=== PATIENT | female | born 1985 | race Caucasian/White ===

== ENCOUNTER 2016-08-14 20:13 | Inpatient (IN) | payer MEDICAID ==
[~2016-08-14] VITALS: Ht 165.1 cm; Wt 84.9 kg
[2016-08-14] MEDS ORDERED: PREN1TAB79 PO (20:49)
[2016-08-14 20:50] VITALS: BP 133/66; PULSE 58; RESP 18
[2016-08-14 20:58] VITALS: Ht 165.1 cm; Wt 84.9 kg
[2016-08-14] MEDS ORDERED: OXYTOCIN 30 UNITS/LR 500 ML IV SCH ×2 (21:00)
[2016-08-14] MEDS ORDERED: LACTATED RINGER'S 1,000 ML IV ONE (21:00)
[2016-08-14] MEDS ORDERED: MISOPROSTOL 200 MCG TAB PR PRN (21:00)
[2016-08-14] MEDS ORDERED: AMPICILLIN 2 GM/NS (PMX) 100 ML IV ONE (21:00)
[2016-08-14] MEDS ORDERED: LIDOCAINE 1% (MPF) 30 ML INJ INJ PRN (21:00)
[2016-08-14] MEDS ORDERED: LACTATED RINGER'S 1,000 ML IV PRN (21:00)
[2016-08-14] MEDS ORDERED: IBUPROFEN 600 MG TAB PO PRN (21:00)
[2016-08-14] MEDS ORDERED: OXYTOCIN 30 UNITS/LR 500 ML IV PRN (21:00)
[2016-08-14] MEDS ORDERED: METHYLERGONOVINE 0.2 MG INJ IM PRN (21:00)
[2016-08-14] MEDS ORDERED: CARBOPROST 250 MCG INJ IM PRN (21:00)
[2016-08-14] MEDS ORDERED: AMPICILLIN 2 GM/NS (PMX) 100 ML ONE (21:12)
[2016-08-14 22:00] LABS: ADD SCAN DIFF NO
[2016-08-14 22:08] LABS: BASOPHILS % 0.2 % (0.0-2.0); EOSINOPHILS # 0.1 10^3/ul (0.0-0.5); EOSINOPHILS % 0.9 % (0.0-7.0); HEMATOCRIT 31.1 % (37.0-47.0); LYMPHOCYTES # 1.9 10^3/ul (0.8-2.9); LYMPHOCYTES % 29.8 % (15.0-51.0); MEAN CORPUSCULAR HEMOGLOBIN 26.2 pg (29.0-33.0); MEAN CORPUSCULAR HGB CONC 32.2 g/dl (32.0-37.0); MEAN CORPUSCULAR VOLUME 81.4 fl (82.0-101.0); MEAN PLATELET VOLUME 12.8 fl (7.4-10.4); MONOCYTE # 0.5 10^3/ul (0.3-0.9); MONOCYTES % 8.1 % (0.0-11.0); NEUTROPHIL # 3.9 10^3/ul (1.6-7.5); NEUTROPHILS % 60.2 % (39.0-77.0); NUCLEATED RED BLOOD CELLS% 0.3 /100WBC (0.0-0.0); PLATELET COUNT 126 10^3/UL (140-415); RED BLOOD COUNT 3.82 10^6/ul (4.20-5.40); RED CELL DISTRIBUTION WIDTH 14.6 % (11.5-14.5); WHITE BLOOD COUNT 6.4 10^3/ul (4.8-10.8)
[2016-08-14 22:23] LABS: INR 0.91; PROTIME 12.2 Sec (12.2-14.2)
[2016-08-14 22:24] LABS: PARTIAL THROMBOPLASTIN TIME 28.2 Sec (25.0-35.0)
[2016-08-14] MEDS ORDERED: FENTAnyl 2MCG/ML-ROPIV 0.2% 100 ML ONE (23:33)
--- NOTE | 2016-08-14 23:49 | TRIAGE ---
OB Triage Datetime Report Generated by CPN: 08/14/2016 23:49 Datetime: 08/14/2016 23:12 Pain Assessment Pain Scale: 5 Pain Presence: Intermittent Pain Type: Contraction Pain Location: Abdomen Pain Goal: 5 Pain Relief Measures: Comfort Measures Datetime: 08/14/2016 23:00 Monitor Mode: External Monitor Mode: External US Datetime: 08/14/2016 22:40 Pain Assessment Pain Scale: 4 Pain Presence: Intermittent Pain Type: Contraction Pain Location: Abdomen Pain Goal: 5 Pain Relief Measures: Comfort Measures Datetime: 08/14/2016 22:00 Monitor Mode: External Monitor Mode: External US Datetime: 08/14/2016 21:05 Stage of : Labor Assessment Type: Admission Assessment Time of Arrival: 08/14/2016 21:05 EGA: 38.6 Arrived By: Ambulatory Arrived From: Other Unit in Hospital Maternal Assessment Level of Consciousness: Fully Conscious DTR's/Clonus: DTRs 2+; No Clonus Headache: Denies Blurred Vision: No Respiratory Effort: Unlabored; Regular Rhythm; Equal Expansion Breath Sounds, Left: Clear and Equal Breath Sounds, Right: Clear and Equal Nausea/Vomiting: Denies RUQ Epigastric Pain: Denies Facial Edema: None Fall Risk Assessment History of Falling: (0) No Secondary Diagnosis: (0) No Ambulatory Aid: (0) Bedrest/Nurse Assist IV Therapy: (0) No Gait: (0) Normal/Bedrest/Immobile Mental Status: (0) Oriented to Own Ability Fall Score: 0 Fall Risk Score Definition: No Risk: No action required Datetime: 08/14/2016 21:00 Stage of : OB Triage Labor Evaluation Frequency: 4-6.5 Monitor Mode: External Duration (sec)2399: 70-110 Quality: Mild Pattern: Normal: <= 5 Contractions in 10 Minutes Resting Tone [place]: Relaxed Heart Rate FHR Baseline Rate: 180 Monitor Mode: External US FHR Baseline Changes: Tachycardia Variability: Moderate 6-25 bpm Accelerations: 10X10 Decelerations: Variable Category: Category II Datetime: 08/14/2016 20:53 Vaginal Exam Dilatation (cms): 3.0 Effacement (%): 50 Station: -3 Exam By: DIONI Tobias Membrane Status: Intact Vaginal Bleeding: Small Cervix, Consistency: Moderate Cervix, Position: Posterior Presentation 'A': Cephalic Datetime: 08/14/2016 20:44 Stage of : OB Triage Assessment Type: Triage Time of Arrival: 08/14/2016 20:07 EGA: 38.6 Arrived By: Ambulatory Arrived From: Home Chief Complaint: Spotting since 1699 _ 's q1hr Movement: Present Contractions: Irregular Time Contractions Began: 08/14/2016 10:00 Contractions: q1hr Rupture of Membranes: Denies Vaginal Bleeding: Small Vaginal Discharge: Present Abdominal Trauma: Not Applicable Patient Complaints: Contractions; Cramping; Back Pain Additional Patient Complaints: Pt reports was in clinic this am. VE done. 1.5cm per pt. Time Provider Notified: 08/14/2016 21:05 Provider Notified: Maternal Assessment Level of Consciousness: Fully Conscious DTR's/Clonus: DTRs 2+; No Clonus Headache: Denies Blurred Vision: No Respiratory Effort: Unlabored; Regular Rhythm; Equal Expansion Breath Sounds, Left: Clear and Equal Breath Sounds, Right: Clear and Equal Nausea/Vomiting: Denies RUQ Epigastric Pain: Denies Lower Extremities Edema: Bilateral Lower Extremities Degree: 1+ (Annotations: More in left ankle) Upper Extremities Edema: None Degree: None Facial Edema: None Temperature Route: Oral Fall Risk Assessment History of Falling: (0) No Secondary Diagnosis: (0) No Ambulatory Aid: (0) Bedrest/Nurse Assist IV Therapy: (0) No Gait: (0) Normal/Bedrest/Immobile Mental Status: (0) Oriented to Own Ability Fall Score: 0 Fall Risk Score Definition: No Risk: No action required Pain Assessment Pain Scale: 3 Pain Presence: Intermittent Pain Type: Cramping Pain Location: Abdomen; Back Pain Relief Measures: Comfort Measures Datetime: 08/14/2016 20:42 Monitor Mode: External Contraction Comments: [place] applied Heart Rate FHR Baseline Rate: 180 Monitor Mode: External US Comments: EFM applied
[2016-08-15] MEDS: LACTATED RINGER'S 1,000 ML IV SCH ×4 (02:10→19:40)
[2016-08-15] MEDS: AMPICILLIN 1 GM/NS (PMX) 50 ML IV SCH ×3 (03:19→11:03)
[2016-08-15] MEDS: BUTORPHANOL 2 MG INJ IV PRN ×2 (03:38→16:39)
--- NOTE | 2016-08-15 10:15 | RADRPT ---
PROCEDURE: US OB. CLINICAL INDICATION: Labor TECHNIQUE: Multiple sonographic images of the uterus were obtained. The images were revi ewed on a PACS workstation. COMPARISON: No prior studies are available for comparison. FINDINGS: There is a single live intrauterine gestation. heart rate is 150 beats per minute. Measurements were made in order to determine age. The results are as follows: BPD = 8.6 cm. HC = 31.3 cm. AC = 31.97 cm. FL = 7.2 cm. Estimated weight is 2800 +/- 420 grams. LMP growth percentile is 7 %. Menstrual age by ultrasound dates is 35 weeks and 4 days. The estimated date of delivery is September 15, 2016. Position is cephalic and placenta is anterior grade II. There is no evidence for an abruption or dragan centa previa. IMPRESSION: 1. Single live intrauterine gestation of 35 weeks and 4 days menstrual age by ultrasound dates. 2. The estimated date of delivery is September 15, 2016. RPTAT: UU .Hussain Park MD, Date Time Electronically viewed and signed by .Hussain Park MD, on 08/15/2016 10:14 .K/
[2016-08-15 10:21] LABS: ADD SCAN DIFF NO
[2016-08-15 10:37] LABS: ADD UMIC YES; URINE BILIRUBIN (Dip) NEGATIVE (NEGATIVE); URINE BLOOD (Dip) 2+ (NEGATIVE); URINE COLOR LT. YELLOW (YELLOW); URINE GLUCOSE (Dip) NEGATIVE (NEGATIVE); URINE KETONES (Dip) NEGATIVE (NEGATIVE); URINE LEUKOCYTE ESTERASE (Dip) NEGATIVE (NEGATIVE); URINE NITRITE (Dip) NEGATIVE (NEGATIVE); URINE TOTAL PROTEIN (Dip) NEGATIVE (NEGATIVE); URINE UROBILINOGEN (Dip) 0.2 E.U./dL (0.1-1.0)
[2016-08-15 10:47] LABS: INR 0.92; PROTIME 12.4 Sec (12.2-14.2)
[2016-08-15 10:48] LABS: ABNORMAL IP MESSAGE 1; ALBUMIN 3.9 g/dl (3.3-4.9); ALBUMIN/GLOBULIN RATIO 1.34; BASOPHILS % 0.1 % (0.0-2.0); BILIRUBIN,INDIRECT 0.3 mg/dl (0-1.1); BILIRUBIN,TOTAL 0.3 mg/dl (0.2-1.3); CALCIUM 8.4 mg/dl (8.4-10.2); CREATININE 0.55 mg/dl (0.44-1.00); EOSINOPHILS % 0.1 % (0.0-7.0); HEMOGLOBIN 10.6 g/dl (12.0-16.0); LYMPHOCYTES # 1.7 10^3/ul (0.8-2.9); LYMPHOCYTES % 24.7 % (15.0-51.0); MEAN CORPUSCULAR HEMOGLOBIN 25.9 pg (29.0-33.0); MEAN CORPUSCULAR HGB CONC 31.2 g/dl (32.0-37.0); MEAN CORPUSCULAR VOLUME 83.1 fl (82.0-101.0); MEAN PLATELET VOLUME 13.4 fl (7.4-10.4); MONOCYTE # 0.4 10^3/ul (0.3-0.9); MONOCYTES % 5.9 % (0.0-11.0); NEUTROPHIL # 4.6 10^3/ul (1.6-7.5); NEUTROPHILS % 67.9 % (39.0-77.0); PARTIAL THROMBOPLASTIN TIME 28.9 Sec (25.0-35.0); PLATELET COUNT 146 10^3/UL (140-415); POTASSIUM 4.3 mmol/L (3.5-5.1); RED BLOOD COUNT 4.09 10^6/ul (4.20-5.40); RED CELL DISTRIBUTION WIDTH 14.9 % (11.5-14.5); TOTAL PROTEIN 6.8 g/dl (6.1-8.1); URIC ACID 5.2 mg/dl (3.1-7.9); WHITE BLOOD COUNT 6.8 10^3/ul (4.8-10.8)
[2016-08-15] MEDS ORDERED: OXYTOCIN 30 UNITS/LR 500 ML IV SCH ×2 (12:30→23:31)
--- NOTE | 2016-08-15 21:00 | HP ---
Date/Time of Note Date/Time of Note DATE: 08/15/16 TIME: 20:58 OB - History Hx of Present Free Text/Dictation term preg Care: Good Care Ultrasounds: Normal mid trimester US Obstetrical Complications: None Medical Complications: None Past Family/Social History * Past Medical, Surgical, Family and Obstetric Histories reviewed from chart. OB Admission Exam Vital Signs Vital Signs Vital Signs Date Time Temp Pulse Resp B/P Pulse Ox O2 Delivery O2 Flow Rate FiO2 08/14/16 20:50 98.6 58 18 133/66 Room Air Physical Exam HEENT: WNL Heart: Rhythm Normal Lungs: Clear, Equal Abdomen: WNL Extremities: Normal Reflexes: Normal Cervical Dilatation: 10cm Effacement: 100% Station: +2 Amniotic Fluid: Clear Accelerations: Accelerations Present Decelerations: No Decelerations Last 72 hours Lab Results CBC & BMP 08/14/16 21:48 08/15/16 10:00 Liver Function Test 08/15/16 10:00 Alanine Aminotransferase (ALT/SGPT) 22 Albumin 3.9 Alkaline Phosphatase 181 H Aspartate Amino Transf (AST/SGOT) 20 Direct Bilirubin 0.00 Total Protein 6.8 OB Assessment/Plan Plan: Expectant Management ALYSE PEREZ MD Aug 15, 2016 20:59
--- NOTE | 2016-08-15 21:01 | LDN ---
Date/Time of Note Date/Time of Note DATE: 08/15/16 TIME: 21:00 Delivery Summary term preg. vaginal delivery Placenta Delivered: Spontaneously Meconium: none Episiotomy: No Anesthesia type: None Estimated blood loss: 350 Sponge & Needle done & correct: Yes Problems: ALYSE PEREZ MD Aug 15, 2016 21:01
[2016-08-15 23:00] VITALS: BP 138/69; PULSE 50; RESP 18
[2016-08-15 23:30] VITALS: BP 115/54; PULSE 54; RESP 18
[2016-08-15] MEDS: LACTATED RINGER'S 1,000 ML IV* SCH (23:31)
[2016-08-16] MEDS ORDERED: ACETAMINOPHEN 325 MG TAB PO PRN
[2016-08-16] MEDS ORDERED: ACETAMINOPHEN/CODEINE #3 TAB PO PRN
[2016-08-16] MEDS ORDERED: METHYLERGONOVINE 0.2 MG INJ IM PRN
[2016-08-16] MEDS ORDERED: LANOLIN 7 GM TUBE TOP PRN
[2016-08-16] MEDS ORDERED: WITCH HAZEL/GLYCERIN PAD PR PRN
[2016-08-16] MEDS ORDERED: DIPHENHYDRAMINE 25 MG CAP PO PRN
[2016-08-16] MEDS ORDERED: BENZOCAINE 20% 56 ML SPRAY TOP PRN
[2016-08-16] MEDS ORDERED: MAGNESIUM HYDROXIDE 30ML CUP PO PRN
[2016-08-16] MEDS ORDERED: CARBOPROST 250 MCG INJ IM PRN
[2016-08-16] MEDS ORDERED: MISOPROSTOL 200 MCG TAB PR PRN
[2016-08-16] MEDS ORDERED: SENNA/DOCUSATE NA (8.6MG/50MG) TAB PO PRN
[2016-08-16] MEDS ORDERED: ZOLPIDEM 5 MG TAB PO PRN
[2016-08-16] MEDS ORDERED: OXYTOCIN 30 UNITS/LR 500 ML IV PRN
[2016-08-16] MEDS: IBUPROFEN 800 MG TAB PO SCH ×5 (00:24→23:41)
[2016-08-16 03:00] VITALS: BP 123/65; RESP 18
[2016-08-16] MEDS: LACTATED RINGER'S 1,000 ML IV* SCH ×3 (07:31→23:31)
[2016-08-16 08:09] LABS: ADD SCAN DIFF NO
[2016-08-16 08:10] VITALS: BP 131/60; PULSE 55; RESP 16
[2016-08-16 08:12] LABS: ABNORMAL IP MESSAGE 1; BASOPHILS % 0.1 % (0.0-2.0); EOSINOPHILS % 0.5 % (0.0-7.0); HEMATOCRIT 27.8 % (37.0-47.0); HEMOGLOBIN 8.8 g/dl (12.0-16.0); LYMPHOCYTES # 2.2 10^3/ul (0.8-2.9); LYMPHOCYTES % 24.9 % (15.0-51.0); MEAN CORPUSCULAR HEMOGLOBIN 26.3 pg (29.0-33.0); MEAN CORPUSCULAR HGB CONC 31.7 g/dl (32.0-37.0); MEAN PLATELET VOLUME 13.3 fl (7.4-10.4); MONOCYTE # 0.7 10^3/ul (0.3-0.9); MONOCYTES % 8.3 % (0.0-11.0); NEUTROPHIL # 5.7 10^3/ul (1.6-7.5); NEUTROPHILS % 65.4 % (39.0-77.0); NUCLEATED RED BLOOD CELLS% 0.2 /100WBC (0.0-0.0); PLATELET COUNT 115 10^3/UL (140-415); RED BLOOD COUNT 3.35 10^6/ul (4.20-5.40); RED CELL DISTRIBUTION WIDTH 14.6 % (11.5-14.5); WHITE BLOOD COUNT 8.7 10^3/ul (4.8-10.8)
--- NOTE | 2016-08-16 11:27 | QN ---
Documentation Comment PPD#1 is stable afebrile +voids No VB +BM VS stable Gen NAD Abd soft NT ND Genitalia No blood at perinium --->discharge plan tomorrow BHARATH BRYAN M.D. Aug 16, 2016 11:27
[2016-08-16 12:18] VITALS: BP 123/76; PULSE 63; RESP 14
[2016-08-16 16:30] VITALS: BP 105/59; PULSE 16; RESP 16
[2016-08-16 19:55] VITALS: BP 107/59; PULSE 55; RESP 18
[2016-08-17 04:20] VITALS: BP 130/42; PULSE 78; RESP 18
[2016-08-17] MEDS: IBUPROFEN 800 MG TAB PO SCH ×2 (06:00→12:55)
[2016-08-17] MEDS: LACTATED RINGER'S 1,000 ML IV* SCH (07:31)
[2016-08-17 08:30] VITALS: BP 131/82; PULSE 51; RESP 18
[2016-08-17] MEDS ORDERED: DIPHTH/TET/ACEL PERTUSS (ADULT) 0.5 ML VIAL IM* ONE (09:00)
[2016-08-17] MEDS ORDERED: VARICELLA VACCINE LIVE/PF 1,350 UNIT/0.5 ML ML SC* ONE (09:00)
[2016-08-17] MEDS ORDERED: MEASLES,MUMPS,RUBELLA VACCINE INJ SC* ONE (09:00)
--- NOTE | 2016-08-17 14:47 | DS ---
Date/Time of Note Date/Time of Note DATE: 08/17/16 TIME: 14:47 Obstetrical Discharge Record Final Diagnosis Final Diagnosis: Term delivered Vaginal Delivery Obstetrical Delivery: Spontaneous Condition on Discharge Physical Assessment Voiding: Yes Bowel Movement: Yes Breast: Soft, non-tender Fundus: Firm Calf Tenderness: Yes Patient Condition: Stable JOSEPHINE HALL MD Aug 17, 2016 14:47
[2016-08-19 04:39] LABS: RUBELLA ANTIBODY - IGG 3.34 index
== END 2016-08-17 15:30 | disposition home or self-care (01) | DRG 775 ==
LOC: OBT 20:13 → L-D 21:04 → OBT 21:05 → L-D 08-15 05:51 → PP1 08-15 22:29
PROVIDERS: ADMIT Obstetrics & Gynecology; ATTEND Obstetrics & Gynecology
PROC: 10E0XZZ Delivery of Products of Conception, External Approach (ICD-10-PCS; principal; 2016-08-14)
DX: O80 Encounter for full-term uncomplicated delivery (principal); Z37.0 Single live birth; Z3A.39 39 weeks gestation of pregnancy
CPT/HCPCS: 76815; 80053; 81001; 84560; 85025; 85610; 85730; 86592; 86703; 86762; 86900; 86901; 87340; 90715; 90716; G0463; J0290; J0595; J2590; J3010; J7120